=== PATIENT | male | born 1940 ===

== ENCOUNTER → 2016-11-16 15:49 | Outpatient (CLI) | payer MEDICARE, OTHER | END | disposition home or self-care (01) | LOC: D.MRI 15:49 | DX: M54.12 Radiculopathy, cervical region (principal) ==

== ENCOUNTER → 2019-05-29 11:56 | Outpatient (CLI) | payer MEDICARE, BC ==
[~2019-05-29 11:56] MED LIST: AMITIZA24 MCG PO; CENTRUM MEN'S1 EACH PO; COZAAR100 MG PO; ELIQUIS2.5 MG PO; HYDROCODON-ACE1 EA10 PO; KLOR-CON 1010 MEQ PO; MOBIC7.5 MG PO; MUCINEX600 MG PO; OSTEO BI-FLEX1 EAC1 PO; PRAVACHOL40 MG PO; PRESERVISION PO; PROSCAR PO; RANITIDINE HCL150 M1 PO; ROCEPHIN 1 GM/D51 G1 IV; ZIAC 10-6.25 MG1 TAB PO; ZYRTEC10 MG PO
[2019-07-11 10:30] VITALS: BMI 29.5
== END | disposition home or self-care (01) ==
LOC: D.LABREF 11:56
PROVIDERS: ATTEND Orthopaedic Surgery
DX: M17.11 Unilateral primary osteoarthritis, right knee (principal)

== ENCOUNTER 2019-06-01 16:55 | Inpatient (IN) | payer MEDICARE, BC ==
[~2019-06-01] VITALS: Ht 175.3 cm; Wt 92.7 kg
[2019-06-16] MEDS ORDERED: MOBIC7.5 MG PO (13:31)
[2019-06-16] MEDS ORDERED: RANITIDINE HCL150 M1 PO (13:32)
[2019-06-16] MEDS ORDERED: ZIAC 10-6.25 MG1 TAB PO (13:33)
[2019-06-16] MEDS ORDERED: PRESERVISION PO (13:33)
[2019-06-16] MEDS ORDERED: OSTEO BI-FLEX1 EAC1 PO (13:33)
[2019-06-16] MEDS ORDERED: ZYRTEC10 MG PO (13:34)
[2019-06-16] MEDS ORDERED: COZAAR100 MG PO (13:34)
[2019-06-16] MEDS ORDERED: KLOR-CON 1010 MEQ PO (13:35)
[2019-06-16] MEDS ORDERED: PRAVACHOL40 MG PO (13:35)
[2019-06-16] MEDS ORDERED: CENTRUM MEN'S1 EACH PO (13:36)
[2019-06-17 11:57] LABS: BASOPHILS 0.3 % (0-2); EOSINOPHILS 3.5 % (0-7); HEMATOCRIT 41.8 % (42.0-54.0); HEMOGLOBIN 14.7 g/dL (13.5-17.5); IMMATURE GRANULOCYTES 0.3 % (0-5); LYMPHOCYTES 21.6 % (15-50); MCH 29.6 pg (26.0-34.0); MCHC 35.2 g/dL (31.0-37.0); MCV 84.1 fL (80.0-100.0); MEAN PLATELET VOLUME 11.5 fL (7.4-10.4); MONOCYTES 9.4 % (2-11); NEUTROPHILS 64.9 % (40-80); PLATELET COUNT 138 10x3/uL (130-400); RBC 4.97 10x6/uL (4.20-6.10); RDW 13.6 % (11.5-14.5); WBC 6.9 10x3/uL (4.8-10.8)
[2019-06-17 12:03] LABS: APTT 31.6 SECONDS (22.8-39.4); INR 1.09 (0.85-1.17); PROTIME 13.6 SECONDS (11.6-15.0)
[2019-06-17 12:15] LABS: CALC OSMOLALITY 290 mosm/kg (275-300); CARBON DIOXIDE 30.2 mmol/L (21.0-32.0); CHLORIDE - SERUM 107 mmol/L (98-107); GLUCOSE 96 mg/dL (74-106); POTASSIUM - SERUM 3.8 mmol/L (3.5-5.1); SODIUM 145 mmol/L (136-145); UREA NITROGEN 19 mg/dL (7-18); eGFR NON AFRICAN AMERICAN 76 mL/min (90-120)
[2019-06-17 12:59] LABS: APPEARANCE CLEAR (CLEAR); BACTERIA FEW /hpf (NONE SEEN); BILIRUBIN NEGATIVE (NEGATIVE); COLOR DK YELLOW (YELLOW); EPITHELIAL CELLS 0-5 /hpf (0-5); GLUCOSE NEGATIVE (NEGATIVE); KETONE NEGATIVE (NEGATIVE); MUCUS <1+ /lpf (NONE SEEN); NITRITE NEGATIVE (NEGATIVE); PROTEIN 1+ mg/dL (NEGATIVE); RED CELLS - URINE NONE SEEN /hpf (0-5); SPECIFIC GRAVITY 1.025 (1.005-1.020); UROBILINOGEN NORMAL (NORMAL); WHITE CELLS - URINE RARE /hpf (0-5)
[2019-06-17 13:00] LABS: CALCIUM OXALATE CRYSTALS 0-5 /hpf (NONE SEEN)
[2019-07-06 09:39] LABS: APPEARANCE CLEAR (CLEAR); BILIRUBIN NEGATIVE (NEGATIVE); COLOR DK YELLOW (YELLOW); GLUCOSE NEGATIVE (NEGATIVE); KETONE NEGATIVE (NEGATIVE); NITRITE NEGATIVE (NEGATIVE); PROTEIN NEGATIVE (NEGATIVE); SPECIFIC GRAVITY 1.025 (1.005-1.020)
[2019-07-06 09:42] LABS: APTT 32.2 SECONDS (22.8-39.4); INR 1.09 (0.85-1.17); PROTIME 13.6 SECONDS (11.6-15.0)
[2019-07-06 09:43] LABS: CALC OSMOLALITY 295 mosm/kg (275-300); CARBON DIOXIDE 31.9 mmol/L (21.0-32.0); CHLORIDE - SERUM 108 mmol/L (98-107); GLUCOSE 97 mg/dL (74-106); POTASSIUM - SERUM 4.1 mmol/L (3.5-5.1); SODIUM 147 mmol/L (136-145); UREA NITROGEN 23 mg/dL (7-18); eGFR NON AFRICAN AMERICAN 76 mL/min (90-120)
[2019-07-06 09:56] VITALS: BP 130/83; BMI 30.3
[2019-07-06 10:50] LABS: BASOPHILS 0.3 % (0-2); EOSINOPHILS 4.7 % (0-7); HEMATOCRIT 43.8 % (42.0-54.0); HEMOGLOBIN 14.9 g/dL (13.5-17.5); IMMATURE GRANULOCYTES 0.2 % (0-5); LYMPHOCYTES 27.4 % (15-50); MCH 29.7 pg (26.0-34.0); MCV 87.3 fL (80.0-100.0); MEAN PLATELET VOLUME 12.1 fL (7.4-10.4); MONOCYTES 10.4 % (2-11); RBC 5.02 10x6/uL (4.20-6.10); RDW 13.8 % (11.5-14.5); WBC 6.1 10x3/uL (4.8-10.8)
[2019-07-06 10:51] LABS: PLATELET COUNT 174 10x3/uL (130-400)
--- NOTE | 2019-07-06 15:12 | NUR ---
PLAZMA BLADE ELACTRODE PAD USED LOT # [id number] DATE 10/22/20 HIBCLENS WITH ALCHOL USED BEFORE CHLORO PREP FROM TOES TO ABOBE KNEE. CHLORO PREP FROM TOES TO ABOVE KNEE
[2019-07-06 17:13] VITALS: BP 142/93
[2019-07-06 17:27] VITALS: BP 146/79; BMI 30.2
[2019-07-06 20:00] VITALS: BP 123/64
--- NOTE | 2019-07-06 20:25 | NUR ---
LYING IN BED. ALERT AND ORIENTED X4. AT BEDSIDE. RESP EVEN AND NONLABORED. DENIES PAIN. JACLYN NOTED TO RT KNEE. CPM IN USE AT THIS TIME. KANA NOTED TO BLE. PEDAL PULSES GOOD. NO EDEMA. 1/2 NS @ 100 ML/HR INFUSING IN LT FOREARM. NO DISTRESS. SR ELEVATED X2. CL IN REACH.
[2019-07-07] VITALS: BP 108/61
[2019-07-07 04:00] VITALS: BP 102/51
--- NOTE | 2019-07-07 06:34 | NUR ---
PT PLACED ON CPM. DENIES PAIN. AT BEDSIDE. CL IN REACH.
[2019-07-07 07:18] LABS: HEMATOCRIT 37.8 % (42.0-54.0); HEMOGLOBIN 12.7 g/dL (13.5-17.5); MCH 29.3 pg (26.0-34.0); MCHC 33.6 g/dL (31.0-37.0); MCV 87.1 fL (80.0-100.0); MEAN PLATELET VOLUME 11.4 fL (7.4-10.4); RBC 4.34 10x6/uL (4.20-6.10); RDW 13.8 % (11.5-14.5)
[2019-07-07 07:30] LABS: WBC 13.9 10x3/uL (4.8-10.8)
--- NOTE | 2019-07-07 08:00 | NUR ---
PT RESTING IN BED WITH CPM IN PLACE TO RIGHT LOWER EXTREMITY. DRESSING C/D/I TO EXTREMITY. DENIES PAIN AT THIS TIME. IV TO LEFT FOREARM WITH 1/2 NS @ 100ML/HR INFUSING VIA PUMP. SITE WITHOUT REDNESS OR EDEMA. AT BEDSIDE. DENIES FURTHER NEEDS AT THIS TIME. CL WITHIN REACH. ENCOURAGED TO CALL WITH NEEDS. CONTINUE POC
[2019-07-07 08:15] VITALS: BP 108/52
--- NOTE | 2019-07-07 08:29 | NUR ---
Post op day [address] Cisneros. Along with MD orders, wound care recommends: -Turn/reposition/assist q 2 hours while in bed - reposition hourly if up in chair -Mepilex to bilateral heels (floating L heel) -Assess skin q shift and as needed if pt complains of tenderness/soreness/burning. -If redness/irritation to perineal area occur use calmoseptine cream
[2019-07-07 09:57] LABS: ALBUMIN 3.3 g/dL (3.4-5.0); ANION GAP 15.4 mmol/L (8-16); BILIRUBIN - TOTAL 1.07 mg/dL (0.2-1.3); CALCIUM 8.1 mg/dL (8.5-10.1); CARBON DIOXIDE 26.5 mmol/L (21.0-32.0); POTASSIUM - SERUM 3.9 mmol/L (3.5-5.1); PROTEIN - SERUM 5.8 g/dL (6.4-8.2)
[2019-07-07 09:58] LABS: CREATININE - SERUM 1.3 mg/dL (0.6-1.3)
[2019-07-07 12:39] VITALS: BP 119/61
[2019-07-07 16:02] VITALS: BP 142/82
--- NOTE | 2019-07-07 19:50 | NUR ---
PT COMBATIVE WITH FAMILY AND TRYING TO GET OOB. CONFUSED. ORIENTED TO SELF ONLY. DIAPHORETIC. VISUAL HALLUCINATIONS NOTED. UNABLE TO USE CPM DUE TO PULLED LEG UP AND TRYING TO GET OOB. BED ALARM IN USE. OFFGOING STAFF REPORTED THAT MD HAD BEEN PAGED TWICE AND CALL HAD NOT BEEN RETURNED.
--- NOTE | 2019-07-07 21:20 | NUR ---
NOTIFIED THIAGO GARCIA OF PT AGITATION. PT CONFUSED, PULLED OFF GOWN, TRYING TO GET OOB, COMBATIVE WITH FAMILY AND PULLING ON LINES. B/P ELEVATED. NEW ORDER NOTED FOR HALDOL 0.5MG IM. BED ALARM IN USE. FAMILY AT BEDSIDE. CONTINUOUS SAO2 PLACED ON PT. SAO2 88%. O2 @ 3L/NC PLACED ON PT. SAO2 97% NOW.
[2019-07-07 22:56] VITALS: BP 172/88
[2019-07-08 01:40] VITALS: BP 175/95
--- NOTE | 2019-07-08 02:25 | NUR ---
MEDICATED WITH TYLENOL SUPP FOR ELEVATED TEMP SINCE PT IS NOT COOPERATIVE AND HAS DIFF FOLLOWING COMMANDS. HAS BEEN AWAKE ALL NIGHT AND RESTLESS. SAO2 97%. O2 @ 2L/NC. STAFF HAS BEEN IN ROOM EVERY FEW MINUTES ALL NIGHT LONG DUE TO PT URINATING ON SELF, TRYING TO GET OOB OR NEEDING TO BE PULLED UP IN THE BED. PT WILL NOT LEAVE GOWN ON. IV FLUIDS TURNED OFF BECAUSE IV KEPT ALARMING DUE TO PT NOT KEEPING ARM STILL. BED ALARM IN USE. FAMILY MEMBERS AT BEDISE.
--- NOTE | 2019-07-08 03:32 | NUR ---
PT STILL RESTLESS AND TRYING TO GET OOB. UNABLE TO REDIRECT BEHAVIOR. ORIENTED TO SELF ONLY. BED ALARM IN USE. FAMILY AT BEDSIDE. O2 @ 3L/NC. SAO2 97%. CL IN REACH.
[2019-07-08 04:58] VITALS: BP 180/84
--- NOTE | 2019-07-08 05:45 | NUR ---
HAS BEEN NAPPING OFF AND ON FOR PAST HOUR. EASILY AWAKENS. SAO2 95%. O2 @ 3L/NC. FAMILY AT BEDSIDE. CL IN REACH. BED ALARM ON
[2019-07-08 06:43] LABS: ALBUMIN 3.4 g/dL (3.4-5.0); ANION GAP 11.4 mmol/L (8-16); BILIRUBIN - TOTAL 1.68 mg/dL (0.2-1.3); CALCIUM 8.4 mg/dL (8.5-10.1); CREATININE - SERUM 1.1 mg/dL (0.6-1.3); POTASSIUM - SERUM 3.4 mmol/L (3.5-5.1); PROTEIN - SERUM 6.5 g/dL (6.4-8.2)
[2019-07-08 06:59] LABS: BASOPHILS 0.1 % (0-2); EOSINOPHILS 0 % (0-7); HEMATOCRIT 36.9 % (42.0-54.0); HEMOGLOBIN 12.4 g/dL (13.5-17.5); IMMATURE GRANULOCYTES 0.4 % (0-5); LYMPHOCYTES 6.7 % (15-50); MCHC 33.6 g/dL (31.0-37.0); MCV 86.4 fL (80.0-100.0); MONOCYTES 13.9 % (2-11); NEUTROPHILS 78.9 % (40-80); PLATELET COUNT 147 10x3/uL (130-400); RBC 4.27 10x6/uL (4.20-6.10); WBC 16.2 10x3/uL (4.8-10.8)
--- NOTE | 2019-07-08 07:55 | NUR ---
PT RESTING IN BED. AT BEDSIDE. NO S/S OF ACUTE DISTRESS. CL IN PLACE.
[2019-07-08 08:45] VITALS: BP 162/90
--- NOTE | 2019-07-08 09:08 | OP ---
PATIENT NAME: Ishmael QUINONEZ MEDICAL RECORD: [id number] :36 LOCATION:D[id number] ADMISSION DATE:07/06/19 SURGEON: KYE BURGESS MD DATE OF OPERATION: 07/06/2019 PREOPERATIVE DIAGNOSIS: Degenerative arthritis, right knee. POSTOPERATIVE DIAGNOSIS: Degenerative arthritis, right knee. PROCEDURE: Right total knee arthroplasty. SURGEON: Kye Burgess MD ANESTHESIA: General. INTRAOPERATIVE COMPLICATIONS: None. SUMMARY OF PATHOLOGIC FINDINGS: The patient had extreme osteoarthritis of the medial compartment with large osteophytes. IMPLANTS USED: Elmore triathlon total knee arthroplasty, cemented size 7 distal femur, size 7 tibial baseplate, size 11 polyethylene insert, size 36 x 10 mm patella, again, all in cemented. MECHANICAL HANDYMAN: BASIA Constantino ESTIMATED BLOOD LOSS: 100 cc. OPERATIVE SUMMARY IN DETAIL: After obtaining the appropriate preoperative orthopedic surgery consent as well as anesthetic consultation, evaluation, and clearance, the patient was brought to the operating room and placed on the operating table in supine position. After general laryngeal mask airway was administered, tourniquet was placed on the proximal aspect of the lower extremity. Right lower extremity was then prepped and draped in routine sterile fashion. The leg was elevated and exsanguinated, tourniquet was inflated to 350 mmHg. Routine midline incision was taken down for paramedian arthrotomy. Patella was everted, distal femoral and proximal tibial joint were exposed. Soft tissues excision was done in the usual fashion. An intramedullary guide hole was created for intramedullary guided distal femoral cut. This was then followed by complete exposure of the proximal tibia. Further soft tissue excision was done followed by placement of intramedullary guide hole for intramedullary guide to cut. The proximal tibia measurements were taken. Chamfer cuts were made on the distal femur. Trials corresponding to the final components were put into place, taken through range of motion and found to be stable in all planes. Final distal femoral and proximal tibial preparations were then followed by excision of the arthritic aspect of the patella. The patella was then prepared for final cementation of the 36 patellar resurfacing implant. All trials were removed. The knee was then irrigated with pulse lavage to remove any debris from the knee cavity. Knee ends were then exposed and dried with a lap sponge and the final components were cemented into place. All excess cement was removed. Having completed drying, the knee was taken through range of motion and found to be stable in all planes. The knee was then treated with a gram of vancomycin and a gram of tobramycin inside the cavity of the knee, it was then closed with #2 Ethibond by BASIA Constantino, as well as #1 Vicryl, 2-0 Vicryl and skin cindy. Sterile dressings were applied. OPERATIVE REPORT [id number] Ishmael QUINONEZ Tourniquet was deflated. The patient was awakened and taken to recovery room in stable condition. All final needle and sponge counts were correct. TRANSINT:[id number] Voice Confirmation ID: [id number] DOCUMENT ID: [id number] JENIFER WONG, KYE KING at 0908 CC: [id number] DICTATION DATE: 07/06/[address] OFFICER: 07/07/19 0253 ADM IN [facility] [address] [place] [address]
--- NOTE | 2019-07-08 10:20 | NUR ---
CALLED [place] FRANKLIN ABOUT PT REQUEST FOR SLEEP MEDICATION. TO FOR TRAZODONE 50 MG QHSPRN.
--- NOTE | 2019-07-08 10:30 | NUR ---
SCANNED BLADDER 879ML NOTED. FC PLACED. 900ML OF CLEAR YELLOW URINE NOTED TO CATH BAG. NO S/S OF ACUTE DISTRESS. CL IN PLACE.
[2019-07-08 12:51] VITALS: BP 140/98
--- NOTE | 2019-07-08 16:23 | NUR ---
Rehab Note- Acute Inpatient Rehab prescreen order received. The patient has a TKA but has had some post op complications. Will continue to follow at this time. THank you for this referral! Angela Reyes RN Clinical Liaison, [facility] Rehab
--- NOTE | 2019-07-08 16:30 | MORECARE ---
CASE MANAGEMENT DISCHARGE SUMMARY PATIENT: Ishmael QUINONEZ UNIT: [id number] ADM DATE: 07/06/19 AGE: 78 : 38 SEX: M ROOM/BED: D.2211 AUTHOR: DARRIAN BOYD PHYSICIAN: REFERRING PHYSICIAN: KYE BURGESS MD DATE OF SERVICE: 07/08/19 Discharge Plan Patient Name: Ishmael QUINONEZ Facility: [facility]:[place] : 1940 Planned Disposition: Anticipated Discharge Date: Discharge Date: Expected LOS: Initial Reviewer: [email or web address] Initial Review Date: 07/08/2019 Generated: 07/08/19 5:29 pm Comments DCP- Discharge Planning Updated by [email or web address]: Criselda Husain on 07/08/19 3:[address] Patient Name: Ishmael QUINONEZ Admission Status: Urgent Accout number: [id number] Admission Date: 07-06-2019 : 1940 Admission Diagnosis:UNILATERAL PRIMARY OSTEOARTHRITIS, RIGHT KNEE Attending: KYE BURGESS Current LOS: 2 Anticipated DC Date: Planned Disposition: Primary Insurance: MEDICARE A & B Discharge Planning Comments: CM SPOKE WITH CHRISTIE AMOS AND PLANS FOR [facility]. SYMONE WITH PT SPOKE WITH ME TODAY AND STATES PATIENT WAS VERY NAUSEATED AND TACHY WHEN SHE WAS DOING PT WITH HIM. CM WILL FOLLOW AND ASSIST. Microbiology Teacher: Criselda Husain Patient Name: Ishmael QUINONEZ Page [phone] at 1630 All edits/amendments must be made on the electronic document DICTATION DATE: 07/08/191628 TOOTH GRINDER: ALMAZ 07/08/19 162 RPT#: [id number] DC DATE: STATUS: ADM IN [facility] [address] [place] [address] END OF REPORT
[2019-07-08 17:26] VITALS: BP 127/84
--- NOTE | 2019-07-08 17:45 | NUR ---
OT NOTE: PT COMPLETED BED MOB WITH MAX A. PT COMPLETED SIT TO STAND WITH MOD A. PT COMPLETED BUE AROM AXS. PT COMPLETED FACE WASH WITH SETUP. THANK YOU, NIA SAINI
--- NOTE | 2019-07-08 18:35 | NUR ---
DAUGHTER STATED, " PT IS SWEATING" CHECKED TEMP AND TEMPORAL 98.7. NO S/S OF ACUTE DISTRESS. DAUGHTER AT BEDSIDE. CL IN PLACE.
[2019-07-08 21:22] VITALS: BP 149/87
[2019-07-09 01:14] VITALS: BP 163/89
[2019-07-09 04:57] VITALS: BP 158/88
[2019-07-09 06:28] LABS: BASOPHILS 0.1 % (0-2); EOSINOPHILS 1.2 % (0-7); HEMOGLOBIN 11.3 g/dL (13.5-17.5); IMMATURE GRANULOCYTES 0.5 % (0-5); LYMPHOCYTES 7.6 % (15-50); MCH 29.2 pg (26.0-34.0); MCHC 33.2 g/dL (31.0-37.0); MCV 87.9 fL (80.0-100.0); MEAN PLATELET VOLUME 11.1 fL (7.4-10.4); MONOCYTES 11.9 % (2-11); NEUTROPHILS 78.7 % (40-80); PLATELET COUNT 137 10x3/uL (130-400); RBC 3.87 10x6/uL (4.20-6.10); RDW 14.1 % (11.5-14.5); WBC 15.4 10x3/uL (4.8-10.8)
[2019-07-09 06:59] LABS: ALBUMIN 2.9 g/dL (3.4-5.0); ALKALINE PHOSPHATASE 66 U/L (46-116); ALT (SGPT) 20 U/L (10-68); BILIRUBIN - TOTAL 1.88 mg/dL (0.2-1.3); CALC OSMOLALITY 282 mosm/kg (275-300); CALCIUM 8.4 mg/dL (8.5-10.1); CARBON DIOXIDE 30.2 mmol/L (21.0-32.0); CHLORIDE - SERUM 103 mmol/L (98-107); GLUCOSE 110 mg/dL (74-106); PROTEIN - SERUM 5.6 g/dL (6.4-8.2); SODIUM 141 mmol/L (136-145); UREA NITROGEN 15 mg/dL (7-18)
[2019-07-09 07:00] LABS: CREATININE - SERUM 0.8 mg/dL (0.6-1.3); eGFR NON AFRICAN AMERICAN > 90 mL/min (90-120)
--- NOTE | 2019-07-09 07:30 | NUR ---
PATIENT ON CPM. IN ROOM. CO OF PAIN 4 OUT OF 10. CL IN REACH. BED ALARM ON. WILL CONTINUE TO MONITOR.
[2019-07-09 08:59] VITALS: BP 154/85
--- NOTE | 2019-07-09 09:30 | NUR ---
PATIENT REMOVED FROM CPM MACHINE. IV THERAPY RESTARTED BECAUSE IT WAS ALARMING OCCLUDED PATIENT SIDE. HE HAD HIS ARM UP AND BENT. CL IN REACH. FAMILY IN ROOM. NO FURTHER NEEDS AT THIS TIME.
[2019-07-09 12:38] VITALS: BP 155/76
--- NOTE | 2019-07-09 12:45 | NUR ---
OT NOTE: PT REMAINS CONFUSED WITH IMPAIRED PROCESSING AND COORDINATION.. PT WAS ON THE BED TEMPLE BUT REPORTED THAT HE HAD BEEN OFF AND ON BP WITH NO SUCCESS. FOUND BS COMMODE; BED MOB WITH MOD ASSIST AND DECREASED MOTOR PLANNING. SITTING BALANCE ON EOB WAS GOOD-; TRANSFER FROM BED TO CHAIR WITH WALKER AND MIN ASSIST, BUT REQUIRES EXTENSIVE VERBAL AND TACTILE CUES FOR HAND/FOOT PLACEMENT, WALKER MGMT, AND CONTINUAL TASK INSTRUCTIONS. ALLOWED PT TIME TO SIT ON BS COMMODE, HOWEVER, CALLED FOR HELP PT WAS LEANING BACK AND HOLDING WALKER ON TOP OF HIM AND WAS UNABLE TO RELEASE WALKER. SHE STATED THAT HE WAS TRYING TO STAND UP AND BUT COULD NOT AND CONTINUED TO SLIDE FORWARD ON BS COMMODE. ASSISTED PT BACK TO BED VS CHAIR, HE WILL PROBABLY NEED TO USE BED TEMPLE AGAIN..REQUIRES 2 PERSON ASSIST ONLY BECAUSE OF COGNITIVE ISSUES. STRENGTH IS FAIRLY GOOD AND IS NOT REPORTING PAIN DURING THERAPY. WILL ATTEMPT GETTING INTO CHAIR TOMORROW. DID NOT FEEL SAFE LEAVING PT IN CHAIR WITH HE IS IMPULSIVE AND UNAWARE OF HIS DEFECITS. HIGH FALL RISK AT THIS TIME. ANDRÉS DELGADO, OTR/L
--- NOTE | 2019-07-09 12:53 | NUR ---
ADDENDUM: UPON GETTING PT TRANSFERRED BACK TO BED, HE VOMITTED LARGE AMOUNTS OF BROWN LIQUID. CLEANED PT AND ASSISTED WITH DONNING NEW GOWN. REPOSITIONED IN BED. NURSING NOTIFIED. ANDRÉS DELGADO OTR/L
[2019-07-09 15:50] LABS: APPEARANCE CLEAR (CLEAR); BILIRUBIN NEGATIVE (NEGATIVE); COLOR YELLOW (YELLOW); GLUCOSE NEGATIVE (NEGATIVE); KETONE NEGATIVE (NEGATIVE); NITRITE NEGATIVE (NEGATIVE); PROTEIN 1+ mg/dL (NEGATIVE); SPECIFIC GRAVITY 1.015 (1.005-1.020); UROBILINOGEN NORMAL (NORMAL)
[2019-07-09 15:52] LABS: BACTERIA FEW /hpf (NEGATIVE); WHITE CELLS - URINE 0-5 /hpf (NEGATIVE)
--- NOTE | 2019-07-09 15:59 | NUR ---
Rehab Note- COntinue to follow at this time as the patient has a pending Urology consult d/t urinary retention. THank you for this referral! Angela Reyes RN Clinical Liaison, [facility] Rehab
[2019-07-09 16:38] VITALS: BP 154/73
[2019-07-09 17:28] VITALS: Ht 175.3 cm; Wt 92.7 kg
[2019-07-09 20:00] VITALS: BP 133/65
--- NOTE | 2019-07-09 22:30 | NUR ---
AT BEDSIDE, PT ALERT, BUT FROGETFULLNESS AND SOME DISORIENTATION NOTED. DRESSING TO RIGHT LEG C/D/I. KANA HOSE IN USE. ABDOMINAL DISTENTION NOTED, BUT PT IS PASSING GAS. REPORTS PT HAS BEED HAVING WATERY STOOLS THROUGHOUT THE DAY. PT BEGAN EXPELLING EMESIS CONSISTING OF FOOD PARTICLES. PRN NAUSEA MEDICATION GIVEN PER ORDER.
[2019-07-10] VITALS: BP 140/74
[2019-07-10 04:00] VITALS: BP 127/65
--- NOTE | 2019-07-10 04:13 | NUR ---
I have reviewed this patient and I concur with the Shift Assessment completed by the Licensed Practical Nurse today this shift.
[2019-07-10 06:03] LABS: BASOPHILS 0.1 % (0-2); EOSINOPHILS 0.3 % (0-7); HEMOGLOBIN 11.2 g/dL (13.5-17.5); IMMATURE GRANULOCYTES 0.3 % (0-5); MCH 29.6 pg (26.0-34.0); MCHC 33.9 g/dL (31.0-37.0); MCV 87.1 fL (80.0-100.0); MEAN PLATELET VOLUME 11.4 fL (7.4-10.4); MONOCYTES 10.6 % (2-11); NEUTROPHILS 83.7 % (40-80); RBC 3.79 10x6/uL (4.20-6.10); RDW 13.8 % (11.5-14.5); WBC 14.9 10x3/uL (4.8-10.8)
[2019-07-10 06:05] LABS: PLATELET COUNT 183 10x3/uL (130-400)
[2019-07-10 06:29] LABS: ALBUMIN 2.7 g/dL (3.4-5.0); ANION GAP 11.4 mmol/L (8-16); BILIRUBIN - TOTAL 2.29 mg/dL (0.2-1.3); CALCIUM 8.6 mg/dL (8.5-10.1); CARBON DIOXIDE 29.6 mmol/L (21.0-32.0); PROTEIN - SERUM 6.4 g/dL (6.4-8.2)
[2019-07-10 06:35] LABS: CREATININE - SERUM 1.1 mg/dL (0.6-1.3)
--- NOTE | 2019-07-10 07:28 | NUR ---
PT IS WITHOUT DISTRESS.FAMILY AT BEDSIDE.CALL LIGHT IN REACH
[2019-07-10 08:26] VITALS: BP 115/66
[2019-07-10] MEDS ORDERED: HYDROCODON-ACE1 EA10 PO (12:49)
[2019-07-10] MEDS ORDERED: ELIQUIS2.5 MG PO (12:49)
[2019-07-10] MEDS ORDERED: ROCEPHIN 1 GM/D51 G1 IV (12:49)
[2019-07-10] MEDS ORDERED: MUCINEX600 MG PO (12:50)
[2019-07-10] MEDS ORDERED: PROSCAR PO (12:50)
[2019-07-10] MEDS ORDERED: AMITIZA24 MCG PO (12:50)
[2019-07-10 13:19] VITALS: BP 115/58
--- NOTE | 2019-07-10 14:07 | MORECARE ---
CASE MANAGEMENT DISCHARGE SUMMARY PATIENT: Ishmael QUINONEZ UNIT: [id number] ADM DATE: 07/06/19 AGE: 78 : 38 SEX: M ROOM/BED: D.2211 AUTHOR: DARRIAN BOYD PHYSICIAN: REFERRING PHYSICIAN: KYE BURGESS MD DATE OF SERVICE: 07/10/19 Discharge Plan Patient Name: Ishmael QUINONEZ Facility: [facility]:[place] : 1940 Planned Disposition: Inpatient Rehab Anticipated Discharge Date: Discharge Date: Expected LOS: Initial Reviewer: [email or web address] Initial Review Date: 07/08/2019 Generated: 07/10/19 3:07 pm Comments DCP- Discharge Planning Updated by [email or web address]: Imani Bang on 07/10/19 1:[address] PATIENT TO BE DISCHARGED TO INPATIENT REHAB AT [facility] TODAY, IMM SERVED AND EXPLAINED. FAMILY AT BEDSIDE. CM TO FOLLOW AND ASSIST NEEDED DCP- Discharge Planning Updated by [email or web address]: Criselda Husain on 07/08/19 3:[address] Patient Name: Ishmael QUINONEZ Admission Status: Urgent Accout number: [id number] Admission Date: 07-06-2019 : 1940 Admission Diagnosis:UNILATERAL PRIMARY OSTEOARTHRITIS, RIGHT KNEE Attending: KYE BURGESS Current LOS: 2 Anticipated DC Date: Planned Disposition: Primary Insurance: MEDICARE A & B Discharge Planning Comments: CM SPOKE WITH CHRISTIE AMOS AND PLANS FOR [facility]. SYMONE WITH PT SPOKE WITH ME TODAY AND STATES PATIENT WAS VERY NAUSEATED AND TACHY WHEN SHE WAS DOING PT WITH HIM. CM WILL FOLLOW AND ASSIST. Landscape Manager: Criselda Husain Coverage Notice Reviewer: [id number] - Imani Bang Notice Issued Date-Time: 07/10/2019 13:55 Notice Type: IM Discharge Notice Notice Delivered To: Patient Relationship to Patient: Automatic Dry Starch Operator Name: Delivery Method: HAND - Hand Delivered Caron Days: Prior Verbal Notification: Recipient Understood Notice: Yes Recipient Signature: Yes Med Rec Note Co-signed by Attending: Coverage Notice Comment: Last DP export: 07/08/19 3:30 p Patient Name: Ishmael QUINONEZ Page [id number] at 1407 All edits/amendments must be made on the electronic document DICTATION DATE: 07/10/191406 DRILL SHARPENER: ALMAZ 07/10/191406 RPT#: [id number] DC DATE: STATUS: ADM IN [facility] [address] [place] [address] END OF REPORT
--- NOTE | 2019-07-13 10:17 | MORECARE ---
CASE MANAGEMENT DISCHARGE SUMMARY PATIENT: Ishmael QUINONEZ UNIT: [id number] ADM DATE: 07/06/19 AGE: 78 : 38 SEX: M ROOM/BED: D.2211 AUTHOR: DARRIAN BOYD PHYSICIAN: REFERRING PHYSICIAN: KYE BURGESS MD DATE OF SERVICE: 07/13/19 Discharge Plan Patient Name: Ishmael QUINONEZ Facility: [facility]:[place] : 1940 Planned Disposition: Inpatient Rehab Anticipated Discharge Date: Discharge Date: 07/10/2019 Expected LOS: 0 Initial Reviewer: [id number] Initial Review Date: 07/08/2019 Generated: 07/13/19 11:17 am DCP- Discharge Planning Updated by [email or web address]: Imani Bang on 07/10/19 1:[address] PATIENT TO BE DISCHARGED TO INPATIENT REHAB AT [facility] TODAY, IMM SERVED AND EXPLAINED. FAMILY AT BEDSIDE. CM TO FOLLOW AND ASSIST NEEDED DCP- Discharge Planning Updated by [email or web address]: Criselda Husain on 07/08/19 3:[address] Patient Name: Ishmael QUINONEZ Admission Status: Urgent Accout number: [id number] Admission Date: 07-06-2019 : 1940 Admission Diagnosis:UNILATERAL PRIMARY OSTEOARTHRITIS, RIGHT KNEE Attending: KYE BURGESS Current LOS: 2 Anticipated DC Date: Planned Disposition: Primary Insurance: MEDICARE A & B Discharge Planning Comments: CM SPOKE WITH CHRISTIE AMOS AND PLANS FOR CRITICAL ACCESS HOSPITAL. SYMONE WITH PT SPOKE WITH ME TODAY AND STATES PATIENT WAS VERY NAUSEATED AND TACHY WHEN SHE WAS DOING PT WITH HIM. CM WILL FOLLOW AND ASSIST. Sheet Metal Supervisor: Criselda Husain Coverage Notice Reviewer: [id number] - Imani Bang Notice Issued Date-Time: 07/10/2019 13:55 Notice Type: IM Discharge Notice Notice Delivered To: Patient Relationship to Patient: Uniform Attendant Name: Delivery Method: HAND - Hand Delivered Caron Days: Prior Verbal Notification: Recipient Understood Notice: Yes Recipient Signature: Yes Med Rec Note Co-signed by Attending: Coverage Notice Comment: Last DP export: 07/10/19 1:07 p Patient Name: Ishmael QUINONEZ Page [id number] at 1017 All edits/amendments must be made on the electronic document DICTATION DATE: 07/13/19 1017 FIRST BREAKER FEEDER: ALMAZ 07/13/19 1017 RPT#: [id number] DC DATE:07/10/19 STATUS: DIS IN [facility] [address] [place] [address] END OF REPORT
== END 2019-07-10 15:06 | DRG 470 ==
LOC: D.SDCHOLD 06-22 10:00 → D.MS 07-06 09:01 → D.SDCHOLD 07-06 10:00 → D.MS 07-06 17:12
PROVIDERS: Family Medicine; ADMIT Orthopaedic Surgery; ATTEND Orthopaedic Surgery
PROC: 0SRC0J9 Replacement of Right Knee Joint with Synthetic Substitute, Cemented, Open Approach (ICD-10-PCS; principal; 2019-07-06 11:15)
DX: M17.11 Unilateral primary osteoarthritis, right knee (principal); D62 Acute posthemorrhagic anemia; I10 Essential (primary) hypertension; E78.5 Hyperlipidemia, unspecified; K21.9 Gastro-esophageal reflux disease without esophagitis; R47.02 Dysphasia; I49.9 Cardiac arrhythmia, unspecified; M54.9 Dorsalgia, unspecified; N40.1 Benign prostatic hyperplasia with lower urinary tract symptoms; R33.8 Other retention of urine

== ENCOUNTER 2019-07-10 15:37 | Inpatient (IN) | payer MEDICARE, BC ==
[~2019-07-10] VITALS: Ht 175.3 cm; Wt 90.7 kg
--- NOTE | 2019-07-10 17:00 | NUR ---
ADMIT TO FLOOR FROM ACUTE CARE. RT KNEE HAS 7 DAY DRESSING. PEDAL PULSES PRESENT X2. THERAPY PUT PT ON CPM TO RLE. NO IV ACCESS NOTED. DTR IN ROOM WITH PT. CALL LIGHT IN REACH
[2019-07-10 17:02] VITALS: BP 120/80; BMI 29.6
--- NOTE | 2019-07-10 19:22 | NUR ---
STARTED IV LEFT UPPER ARM 22G X1 ATTEMPT. FLUSHES AND DRAWS WITHOUT DIFFICULTY. DRESSING C/D/I DATE, TIME, AND INITIAL. PT TOLERATED WELL.
--- NOTE | 2019-07-10 20:00 | NUR ---
PATIENT RECEIVED SITTING UP IN CHAIR. DAUGHTER AT HIS SIDE. ASSESSMENT & VITAL SIGNS DONE. NO C/O PAIN OR DISTRESS. WILL CONTINUE TO MONITOR.
--- NOTE | 2019-07-10 20:55 | NUR ---
PATIENT ROCEPHIN GIVEN AT THIS TIME D/T HIS ADMISSION THIS AFTERNOON.
[2019-07-10 22:00] VITALS: BP 132/73
--- NOTE | 2019-07-11 02:56 | NUR ---
I have reviewed this patient and I concur with the Shift Assessment completed by the Licensed Practical Nurse today this shift.
--- NOTE | 2019-07-11 03:38 | NUR ---
PATIENT EYES CLOSED. RESPIRATIONS 18 & EVEN. AT BEDSIDE. BED LOW. ALARM ON. WILL CONTINUE TO MONITOR.
[2019-07-11 05:46] LABS: BASOPHILS 0.1 % (0-2); EOSINOPHILS 3.1 % (0-7); HEMATOCRIT 30.1 % (42.0-54.0); HEMOGLOBIN 10.1 g/dL (13.5-17.5); IMMATURE GRANULOCYTES 0.4 % (0-5); LYMPHOCYTES 10.6 % (15-50); MCH 29.1 pg (26.0-34.0); MCHC 33.6 g/dL (31.0-37.0); MCV 86.7 fL (80.0-100.0); MEAN PLATELET VOLUME 10.7 fL (7.4-10.4); MONOCYTES 12.9 % (2-11); NEUTROPHILS 72.9 % (40-80); PLATELET COUNT 192 10x3/uL (130-400); RBC 3.47 10x6/uL (4.20-6.10); WBC 13.4 10x3/uL (4.8-10.8)
[2019-07-11 06:00] LABS: CALCIUM 8.5 mg/dL (8.5-10.1); CARBON DIOXIDE 28.1 mmol/L (21.0-32.0); CHLORIDE - SERUM 102 mmol/L (98-107); GLUCOSE 104 mg/dL (74-106); SODIUM 140 mmol/L (136-145); eGFR NON AFRICAN AMERICAN 76 mL/min (90-120)
[2019-07-11 06:01] LABS: CALC OSMOLALITY 285 mosm/kg (275-300); POTASSIUM - SERUM 3.3 mmol/L (3.5-5.1); UREA NITROGEN 32 mg/dL (7-18)
[2019-07-11 07:33] VITALS: BP 123/60
[2019-07-11 10:30] VITALS: Ht 175.3 cm; Wt 90.7 kg
--- NOTE | 2019-07-11 10:31 | NUR ---
RESTING WO DISTRESS. AT BS. NO C/O PAIN. CL IN REACH.
--- NOTE | 2019-07-11 13:39 | NUR ---
ASSISTED TO BED FROM . BED ALARM IS ON. CL IN REACH.
--- NOTE | 2019-07-11 15:26 | NUR ---
ACCIDENT ON CLOTHES AND LINENS.
--- NOTE | 2019-07-11 17:16 | NUR ---
DOING THERAPY AT THIS TIME. REFUSED THERAPY TWICE TODAY BUT, IS PARTICIPATING NOW. NO CHANGE IN ASSESSMENT. DAUGHTER IS HERE IN HIS ROOM WAITING FOR HIM TO RETURN FROM THERAPY.
--- NOTE | 2019-07-11 19:30 | NUR ---
BEDSIDE REPORT COMPLETE. PT LYING IN BED EYES CLOSED RESTING QUIETLY. CPM ON RIGHT LEG. EASILY AROUSED WITH VERBAL STIMULI. DENIES ANY NEEDS OR PAIN. FAMILY AT BEDSIDE NOTED. CALL LIGHT WITHIN REACH, FALL PRECAUTIONS IN PLACE. WILL CONTINUE TO MONITOR
[2019-07-11 21:03] VITALS: BP 130/64
--- NOTE | 2019-07-11 23:20 | NUR ---
QUIET HOURS. PT LYING IN BED SUPINE EYES CLOSED RESTING QUIETLY. BELL PATENT FREE OF KINKS. SLEEPING IN CHAIR AT BEDSIDE. WILL CONTINUE TO MONITOR
--- NOTE | 2019-07-12 03:01 | NUR ---
PT LYING IN BED EYES CLOSED RESTING QUIETLY. SLEEPING IN CHAIR AT BEDSIDE.
--- NOTE | 2019-07-12 06:01 | NUR ---
PT SITTING UP IN W/C WATCHING TV WITH . DENIES ANY NEEDS OR PAIN.
--- NOTE | 2019-07-12 09:27 | NUR ---
PATIENT IS CONFUSED AT TIMES. FAMILY REMAINS IN ROOM WITH PATIENT. BED ALARM ON. CALL LIGHT WITHIN REACH. VOICES NO NEEDS AT THIS TIME. WILL CONTINUE WITH PLAN OF CARE
[2019-07-12 10:32] VITALS: BP 144/72
--- NOTE | 2019-07-12 15:45 | NUR ---
PATIENT HELPED OUT OF BED. MOD ASST OF ONE WITH TRANSFERS FROM BED TO WHEELCHAIR
--- NOTE | 2019-07-12 16:45 | NUR ---
IV ANTIBIOTIC STARTED. PATIENT SITTING UP IN WHEELCHAIR TO EAT SUPPER. FAMILY IN ROOM.
--- NOTE | 2019-07-12 18:58 | NUR ---
BEDSIDE REPORT COMPLETE. PT LYING IN BED WATCHING TV. AT BEDSIDE NOTED. DENIES ANY NEEDS OR PAIN. NO SIGNS OF DISTRESS NOTED. BELL PATENT FREE OF KINKS. BART IV SL WITHOUT REDNESS OR SWELLING. DRESSING C/D/I. CALL LIGHT AND WATER WITHIN REACH, FALL PRECAUTIONS IN PLACE. WILL CONTINUE TO MONITOR
[2019-07-12 20:25] VITALS: BP 145/74
--- NOTE | 2019-07-12 23:38 | NUR ---
QUIET HOURS. PT LYING IN BED SUPINE HOB 15 DEGREES. EYES CLOSED RESTING QUIETLY. AT BEDSIDE SLEEP. NO SIGNS OF ACUTE DISTRESS NOTED.
--- NOTE | 2019-07-13 03:21 | NUR ---
PT LYING IN BED EYES CLOSED RESTING QUIETLY. ASLEEP IN CHAIR AT BEDSIDE.
--- NOTE | 2019-07-13 06:13 | NUR ---
PT LYING IN BED EYES CLOSED RESTING QUIETLY. ASLEEP AT BEDSIDE
[2019-07-13 06:21] LABS: BASOPHILS 0.3 % (0-2); EOSINOPHILS 3.6 % (0-7); HEMATOCRIT 29.3 % (42.0-54.0); HEMOGLOBIN 9.7 g/dL (13.5-17.5); IMMATURE GRANULOCYTES 5.9 % (0-5); LYMPHOCYTES 12.7 % (15-50); MCH 28.7 pg (26.0-34.0); MCHC 33.1 g/dL (31.0-37.0); MCV 86.7 fL (80.0-100.0); MEAN PLATELET VOLUME 9.8 fL (7.4-10.4); MONOCYTES 12.1 % (2-11); NEUTROPHILS 65.4 % (40-80); RBC 3.38 10x6/uL (4.20-6.10); RDW 13.9 % (11.5-14.5); WBC 12.9 10x3/uL (4.8-10.8)
[2019-07-13 06:34] LABS: CALC OSMOLALITY 282 mosm/kg (275-300); CALCIUM 8.4 mg/dL (8.5-10.1); CARBON DIOXIDE 28.5 mmol/L (21.0-32.0); CHLORIDE - SERUM 104 mmol/L (98-107); CREATININE - SERUM 0.9 mg/dL (0.6-1.3); GLUCOSE 102 mg/dL (74-106); POTASSIUM - SERUM 3.1 mmol/L (3.5-5.1); SODIUM 141 mmol/L (136-145); UREA NITROGEN 19 mg/dL (7-18); eGFR NON AFRICAN AMERICAN 86 mL/min (90-120)
[2019-07-13 06:43] LABS: PLATELET COUNT 237 10x3/uL (130-400)
--- NOTE | 2019-07-13 07:45 | NUR ---
PRN ZOFRAN GIVEN FOR NASUEA
[2019-07-13 08:00] VITALS: BP 144/68
--- NOTE | 2019-07-13 08:00 | NUR ---
PATIENT SITTING UP IN CHAIR THIS AM AT SINK WASHING FACE. IN ROOM WITH PATIENT. CALL LIGHT WITHIN REACH. VOICES NO NEEDS AT THIS TIME. WILL CONTINUE WITH PLAN OF CARE
--- NOTE | 2019-07-13 11:52 | NUR ---
PATIENT IN REHAB ROOM. WORKING WITH PHYSICAL THERAPIST. DENIES ANY NAUSEA OR PAIN/DISC AT THIS TIME.
--- NOTE | 2019-07-13 13:32 | NUR ---
PATIENT LYING ON SIDE AND RESTING IN BED AT THIS TIME. REFUSED CPM ON AT THIS TIME.
--- NOTE | 2019-07-13 13:48 | NUR ---
SPEECH THERAPIST IN ROOM. WORKING WITH PATIENT
--- NOTE | 2019-07-13 15:00 | NUR ---
CPM ON RIGHT KNEE. MOTION SET BY THERAPY
--- NOTE | 2019-07-13 15:55 | NUR ---
DR ESQUIVEL CALLED BY THIS NURSE. PATIENTS' STATED THAT PATIENT HAS AN APPT WITH DR ESQUIVEL ON . STATED THAT PATIENT HAS HAD PROSTATE PROBLES. DR ESQUIVEL STATED TO NOT REMOVE BELL CATH. TO KEEP BELL CATH IN UNTIL PATIEN IS DISCHARGED FROM REHAB AND SEES HIM ON
--- NOTE | 2019-07-13 19:29 | NUR ---
AWAKE AND ALERT. RESTING IN BED. RESPIRATIONS UNLABORED. SALINE LOCK INTACT TO LEFT UPPER ARM WITH NO SIGNS OF INFILTRATION. BELL PATENT DRAINING CLEAR YELLOW URINE. RIGHT TOTAL KNEE REPAIR DRESSING DRY AND INTACT. FAMILY AT BEDSIDE. CALL LIGHT IN REACH.
[2019-07-13 20:44] VITALS: BP 157/76
--- NOTE | 2019-07-14 01:09 | NUR ---
SLEEPING WITH RESPIRATIONS UNLABORED. SALINE LOCK INTACT. BELL PATENT. FAMILY AT BEDSIDE.
--- NOTE | 2019-07-14 02:52 | NUR ---
SLEEPING WITH RESPIRATIONS UNLABORED. NO DISTRESS NOTED. CALL LIGHT IN REACH. FAMILY AT BEDSIDE.
--- NOTE | 2019-07-14 05:08 | NUR ---
QUIET HOURS. NO ACUTE CHANGES IN CONDITION THIS SHIFT. DRESSING TO RIGHT KNEE DRY AND INTACT. BELL PATENT. SALINE LOCK INTACT TO LEFT UPPER ARM WITH NO SIGNS OF INFILTRATION. CALL LIGHT IN REACH. FAMILY AT BEDSIDE.
--- NOTE | 2019-07-14 07:22 | NUR ---
RESTING WO DISTRESS. RESP EVEN AND UNLABORED. CL IN REACH.
[2019-07-14 08:00] VITALS: BP 154/82
--- NOTE | 2019-07-14 09:08 | NUR ---
SHOWER TODAY DONE PER NURSING.
--- NOTE | 2019-07-14 13:31 | NUR ---
PARTICIPATED IN THERAPY. IN ROOM WITH AT AT THIS TIME. BED ALARM ON. CL IN REACH.
--- NOTE | 2019-07-14 14:03 | NUR ---
Nutrition Follow-up: Chart reviewed. Noted diarrhea improved. Diet: Regular PO intake: ~66% average x 8 meals, as recorded. Spoke with pt and pt's . Both report an "alright" appetite for pt. reports that pt is eating about half. Reports that they will order pt an Ensure if they feel that his PO intake is inadequate. Meds noted: IV rocephin. Labs reviewed. Noted "reddened area to buttocks" on nursing skin assessment. Last BM 07/13/19 x 2. Wt: 200# (07/11/19) Continue current nutrition regimen. Encouraged PO intake. Will offer oral nutrition supplements if PO intake <50% average. RD Following.
--- NOTE | 2019-07-14 15:51 | NUR ---
PATIENT ADMITTED TO REHAB FROM ACUTE FLOOR. DR. ALONZO SCHWARZ IS PATIENT PCP. DISCHARGE PLANS ARE FOR PATIENT TO RETURN HOME. PATIENT WAS ADMITTED TO ACUTE FLOOR FOR AN ELECTIVE TOTAL KNEE. WILL CONTINUE TO FOLLOW WITH PATIENT
--- NOTE | 2019-07-14 16:00 | NUR ---
NO CHANGE IN ASSESSMENT. RESP EVEN AND UNLABORED. NO C/O PAIN. CL IN REACH. CPM ON TO R LE.
--- NOTE | 2019-07-14 19:20 | NUR ---
BEDSIDE REPORT COMPLETE. PT SITTING UP IN BED WATCHING TV. DENIES ANY NEEDS OR PAIN. ALERT AND ORIENTED X4. AT BEDSIDE. VS STABLE. SHIFT ASSESSMENT COMPLETE. F/C PATENT AND FREE OF KINKS. CALL LIGHT AND WATER WITHIN REACH, FALL PRECAUTIONS IN PLACE. WILL CONTINUE TO MONITOR
[2019-07-14 19:30] VITALS: BP 146/75
--- NOTE | 2019-07-14 23:14 | NUR ---
QUIET HOURS. PT LYING IN BED EYES CLOSED RESTING QUIETLY. AT BEDSIDE ASLEEP. RR EVEN AND UNLABORED. WILL CONTINUE TO MONITOR
--- NOTE | 2019-07-15 05:00 | NUR ---
PT LYING IN BED EYES CLOSED RESTING QUIETLY. AT BEDSIDE ASLEEP. WILL CONTINUE TO MONITOR
--- NOTE | 2019-07-15 07:13 | NUR ---
RESTING WO DISTRESS. RESP EVEN AND UNLABORED. CL IN REACH.
[2019-07-15 07:32] LABS: BASOPHILS 0.4 % (0-2); EOSINOPHILS 2.4 % (0-7); HEMATOCRIT 31.9 % (42.0-54.0); HEMOGLOBIN 10.6 g/dL (13.5-17.5); IMMATURE GRANULOCYTES 5.6 % (0-5); LYMPHOCYTES 9.4 % (15-50); MCH 28.7 pg (26.0-34.0); MCHC 33.2 g/dL (31.0-37.0); MCV 86.4 fL (80.0-100.0); MEAN PLATELET VOLUME 10.5 fL (7.4-10.4); NEUTROPHILS 72.2 % (40-80); PLATELET COUNT 245 10x3/uL (130-400); RBC 3.69 10x6/uL (4.20-6.10); WBC 14.8 10x3/uL (4.8-10.8)
[2019-07-15 07:55] LABS: CALC OSMOLALITY 278 mosm/kg (275-300); CALCIUM 8.5 mg/dL (8.5-10.1); CARBON DIOXIDE 28.4 mmol/L (21.0-32.0); CHLORIDE - SERUM 103 mmol/L (98-107); CREATININE - SERUM 0.8 mg/dL (0.6-1.3); GLUCOSE 107 mg/dL (74-106); POTASSIUM - SERUM 3.6 mmol/L (3.5-5.1); SODIUM 139 mmol/L (136-145); UREA NITROGEN 15 mg/dL (7-18); eGFR NON AFRICAN AMERICAN > 90 mL/min (90-120)
[2019-07-15 08:04] VITALS: BP 127/49
--- NOTE | 2019-07-15 18:28 | NUR ---
NO CHANGE IN ASSESSMENT. RESP EVEN AND UNLABORED. FAMILY AT BS. CL IN REACH.
--- NOTE | 2019-07-15 20:03 | NUR ---
AWAKE AND ALERT RESTING IN BED. RESPIRATIONS UNLABORED. MIDLINE INTACT TO LEFT UPPER ARM. BELL PATENT. FAMILY AT BEDSIDE. NO ACUTE DISTRESS NOTED. CALL LIGHT IN REACH.
[2019-07-15 22:00] VITALS: BP 151/76
--- NOTE | 2019-07-16 00:09 | NUR ---
RESTING IN BED WITH NO DISTRESS NOTED. BELL PATENT. AT BEDSIDE.
--- NOTE | 2019-07-16 03:04 | NUR ---
RESTING IN BED WITH RESPRIATIONS UNLABORED. NO DISTRESS NOTED. FAMILY AT BEDSIDE.
--- NOTE | 2019-07-16 05:26 | NUR ---
QUIET HOURS. NO ACUTE CHANGES IN CONDITION THIS SHIFT. RESTING QUIETLY. BELL PATENT. LEFT UPPER ARM SALINE LOCK INTACT. NO DISTRESS NOTED.
[2019-07-16 08:00] VITALS: BP 129/67
--- NOTE | 2019-07-16 08:21 | NUR ---
PATIENT IS ALERT/SOME FORGETFULLNESS. IN ROOM WITH PATIENT. CALL LIGHT WITHIN REACH. VOICES NO NEEDS AT THIS TIME. WILL CONTINUE WITH PLAN OF CARE
--- NOTE | 2019-07-16 10:11 | NUR ---
PATIENT HELPED WITH SHOWER FROM PLANNER SCHEDULER
--- NOTE | 2019-07-16 11:00 | NUR ---
I have reviewed this patient and I concur with the Shift Assessment completed by the Licensed Practical Nurse today this shift.
--- NOTE | 2019-07-16 13:43 | RHP ---
PATIENT: Ismhael QUINONEZ MEDICAL RECORD: [id number] ACCOUNT: [id number] LOCATION:[facility]1110 : 38 ADMISSION DATE: 07/10/19 REHABILITATION HISTORY AND PHYSICAL EXAMINATION POST ADMISSION PHYSICIAN EXAMINATION ADMITTING DIAGNOSIS: Status post left total knee replacement, debility. HISTORY OF PRESENT ILLNESS: The patient is an 78-year-old gentleman with past medical history of acute blood loss anemia, end-stage osteoarthritis, chronic dysphagia, hypertension, hyperlipidemia, and chronic back pain. The patient apparently had been admitted to medical floor for evaluation and monitoring treatment. Prior to this admission, the patient was living alone with his and house with multiple steps. He was independent with ADLs. He is currently max assist with ambulation and ADLs. He is going to require inpatient therapy to get back to his prior level of functioning, after having a lower extremity total knee replacement. COMORBIDITIES: In this patient include right total knee arthroplasty, acute blood loss anemia, end-stage osteoarthritis, chronic dysphagia, hypertension, hyperlipidemia, irregular heartbeat, arthritis, chronic back pain, gastroesophageal reflux disease, and history of Chadbourn spotted fever. PAST MEDICAL HISTORY: Significant for allergies, got a history of hyperlipidemia, hypertension, chronic cough, Chadbourn spotted fever, acid reflux, arthritis, chronic back pain. PAST SURGICAL HISTORY: Includes cataract surgery. He has had a right hernia repair. He has had a hematoma that thought debrided in the past. He had knee surgery. ALLERGIES: PREVACID. CURRENT MEDICATIONS: Include Floranex 460 mg daily, Proscar 5 mg daily, potassium 20 mEq daily, multivitamin 1 tab daily, Ziac 10/6.25 one tab daily, Pepcid 40 mg b.i.d., Pravachol 40 mg at bedtime, Cozaar 100 mg at bedtime, Mucinex 1200 mg b.i.d., Sowmya 60 mg b.i.d., Eliquis 2.5 mg b.i.d., Amitiza 24 mcg b.i.d. with meals, [place]field 10/325 one tab q.4 hours p.r.n., and Rocephin 1 gram q.24 hours for a total of 6 doses. HABITS: No alcohol or tobacco use. FAMILY HISTORY: Noncontributory. SOCIAL HISTORY: The patient hopes to return back home and get back to his prior level of functioning. REVIEW OF SYSTEMS: GENERAL: Denies weakness or fatigue. HEENT: Denies cold, cough, or congestion. CARDIOVASCULAR: He denies chest pain. PHYSICAL EXAMINATION: VITAL SIGNS: Stable, afebrile. GENERAL: A somewhat obese gentleman in no acute distress, alert upon exam. HISTORY AND PHYSICAL [id number] Ishmael QUINONEZ HEENT: Normocephalic and atraumatic. Mucosa moist. NECK: Supple. No lymphadenopathy. LUNGS: Clear at this time with no wheeze, rhonchi, or rales. HEART: Regular rhythm. He does have some frequent PVCs. ABDOMEN: Soft and nondistended. Positive bowel sounds times 4. EXTREMITIES: No clubbing, cyanosis, or edema. Postop swelling appears normal. NEUROLOGIC: He is mainly normal. LABORATORY DATA: White count is 14.9, H and H of 11 and 33 and platelet count was noted to be 183. His sodium is 140, potassium 4.0, BUN and creatinine of 22 and 1.1 and blood sugar is note to be 110. UA did show 2+ blood, trace leukocyte esterase. ASSESSMENT: This is an 78-year-old gentleman admitted to the rehab with a working diagnosis of total knee replacement, debility, associated with it. The patient has potential to make improvement. We instituted the following multidisciplinary therapies include, but not limited to physical, occupational, respiratory, speech, nutritional services, prosthetics and orthotics. Given her complex medical condition and risks for more complications, rehabilitation services cannot be provided at a low level of care such as skilled nurse facility. PLAN: 1. Admit to [facility] for intensive inpatient therapy to include the following disciplines: A. Physical therapy to improve gait, all transfer skills and bed mobility to a modified independent level. B. Occupational therapy to a modified independent level. C. Case management to assist with discharge planning and placement options. D. Nutrition to assist with nutritional needs. E. Rehabilitation nursing to assist in monitoring the patient's underlying medical conditions and to assist with any type of bowel or bladder management. 2. The patient's current medication and medical care will be continued. 3. Placed on standard fall precautions. 4. The patient's estimated length of stay is approximately 7-10 days. 5. We will discuss this patient during care team staff meeting this week. We will see again in the a.m. on Saturday. TRANSINT:[id number] Voice Confirmation ID: [id number] DOCUMENT ID: [id number] MONROE notes whether there has been none or any medical/functional change since admission: - No change since preadmission screen. MONROE attests patient continues to be appropriate for IRF: - Continues to be appropriate. HISTORY AND PHYSICAL [id number] Ishmael QUINONEZ,ASHOK ZHU MD at 1343 CC: [id number] DICTATION DATE: 07/10/191940 SOCIAL MEDIA DESIGNER: 07/10/193 ADM IN [facility] [address] [id number]
--- NOTE | 2019-07-16 13:44 | NUR ---
PATIENT IN REHAB ROOM. WORKING WITH OCCUPATIONAL THERAPIST
--- NOTE | 2019-07-16 19:46 | NUR ---
AWAKE AND ALERT. SOME MILD CONFUSION AT TIMES. RESPIRATIONS UNLABORED. RIGHT KNEE MILDLY SWOLLEN WITH SURICAL CLIPS IN PLACE. PLACED ON CPM AT THIS TIME. BELL PATENT. AT BEDSIDE.
[2019-07-16 21:16] VITALS: BP 147/77
--- NOTE | 2019-07-17 00:21 | NUR ---
RESTING IN BED WITH RESPIRATIONS UNLABORED. EYES CLOSED. BELL PATENT. AT BEDSIDE.
--- NOTE | 2019-07-17 05:29 | NUR ---
QUIET HOURS. JUST ASSISTED TO BATHROOM AND BACK TO BED. NO CURRENT C/O PAIN. URINE IN BELL SLIGHTLY RED. MESSAGE LEFT FOR DR LOVE ON ROUNDING SHEET. BRI INTACT TO RIGHT KNEE. AT BEDISIDE.
[2019-07-17 06:04] LABS: BASOPHILS 0.2 % (0-2); EOSINOPHILS 3.4 % (0-7); HEMATOCRIT 33.5 % (42.0-54.0); IMMATURE GRANULOCYTES 5.2 % (0-5); MCH 28.9 pg (26.0-34.0); MCHC 32.8 g/dL (31.0-37.0); MCV 88.2 fL (80.0-100.0); MEAN PLATELET VOLUME 10.8 fL (7.4-10.4); NEUTROPHILS 63.2 % (40-80); PLATELET COUNT 220 10x3/uL (130-400); RDW 14.4 % (11.5-14.5); WBC 14.3 10x3/uL (4.8-10.8)
[2019-07-17 06:35] LABS: CALC OSMOLALITY 289 mosm/kg (275-300); CALCIUM 8.2 mg/dL (8.5-10.1); CARBON DIOXIDE 29.4 mmol/L (21.0-32.0); CHLORIDE - SERUM 104 mmol/L (98-107); CREATININE - SERUM 0.8 mg/dL (0.6-1.3); GLUCOSE 80 mg/dL (74-106); POTASSIUM - SERUM 4.4 mmol/L (3.5-5.1); SODIUM 144 mmol/L (136-145); UREA NITROGEN 24 mg/dL (7-18); eGFR NON AFRICAN AMERICAN > 90 mL/min (90-120)
[2019-07-17 08:00] VITALS: BP 135/72
--- NOTE | 2019-07-17 08:12 | NUR ---
PT SITTING UP IN BED EATING BREAKFAST, DENIES NEEDS. WCTM.
--- NOTE | 2019-07-17 17:28 | NUR ---
NEW STAT LOCK PLACED D/T PREV ONE TWISTING AND COMING OFF. UA COLLECTED. PT EATIG DINNER, DENIES NEEDS. WCTM.
[2019-07-17 18:11] LABS: APPEARANCE CLEAR (CLEAR); BILIRUBIN NEGATIVE (NEGATIVE); COLOR YELLOW (YELLOW); GLUCOSE NEGATIVE (NEGATIVE); KETONE NEGATIVE (NEGATIVE); NITRITE NEGATIVE (NEGATIVE); PROTEIN NEGATIVE (NEGATIVE); UROBILINOGEN NORMAL (NORMAL)
[2019-07-17 18:13] LABS: BACTERIA FEW /hpf (NEGATIVE); RED CELLS - URINE 0-5 /hpf (0-5); WHITE CELLS - URINE RARE /hpf (NEGATIVE)
--- NOTE | 2019-07-17 19:05 | NUR ---
BEDSIDE REPORT COMPLETE. INTRODUCED SELF TO PT AND PT FAMILY, UPDATED INFO BOARD. PT SITTING UP IN BED WATCHING TV. DENIES ANY NEEDS OR PAIN. PLACED CPM RIGHT KNEE. VS STABLE. SHIFT ASSESSMENT COMPLETE. BELL PATENT AND FREE FROM KINKS. CALL LIGHT AND WATER WITHIN REACH, FALL PRECAUTIONS IN PLACE. WILL CONTINUE TO MONITOR
[2019-07-17 19:48] VITALS: BP 138/72
--- NOTE | 2019-07-17 23:51 | NUR ---
QUIET HOURS. PT LYING IN BED EYES CLOSED RESTING QUIETLY. RR EVEN AND UNLABORED. WILL CONTINUE TO MONITOR
--- NOTE | 2019-07-18 03:27 | NUR ---
PT LYING IN BED SUPINE EYES CLOSED RESTING QUIETLY. AT BEDSIDE. CL IN REACH. NO SIGNS OF DISTRESS NOTED. WILL CONTINUE TO MONITOR
[2019-07-18 08:18] VITALS: BP 141/72
--- NOTE | 2019-07-18 08:47 | NUR ---
PT AM MEDS ADMINISTERED. PT DENIES NEEDS. WCTM.
--- NOTE | 2019-07-18 17:44 | NUR ---
PT EATING DINNER, DENIES NEEDS. WCTM.
--- NOTE | 2019-07-18 19:00 | NUR ---
BEDSIDE REPORT COMPLETE. PT LYING IN BED WATCHING FOOTBALL WITH FAMILY. DENIES ANY NEEDS OR PAIN. ALERT AND ORIENTED X4. NO SIGNS OF DISTRESS NOTED. VS STABLE. SHIFT ASSESSMENT COMPLETE. CL IN REACH. FALL PRECAUTIONS IN PLACE. WILL CONTINUE TO MONITOR
[2019-07-18 19:10] VITALS: BP 128/64
--- NOTE | 2019-07-18 22:14 | NUR ---
CPM ON RIGHT LEG
--- NOTE | 2019-07-18 23:43 | NUR ---
QUIET HOURS. PT LYING SUPINE IN BED EYES CLOSED RESTING. REMOVED CPM.
--- NOTE | 2019-07-19 03:20 | NUR ---
PT LYING IN BED EYES CLOSED RESTING QUIETLY. ASLEEP AT BEDSIDE.
--- NOTE | 2019-07-19 05:50 | NUR ---
PLACED PT ON CPM
--- NOTE | 2019-07-19 06:33 | NUR ---
LYING IN BED SUPINE EYES CLOSED RESTING. 45 MIN REMAINING LEFT ON CPM. AT BEDSIDE READING PAPER.
--- NOTE | 2019-07-19 08:57 | NUR ---
PT AM MEDS ADMINSITERED. PT ASSISTED BACK INTO BED AND CPM PLACED ON RLE. PT DENIES NEEDS. WCTM.
--- NOTE | 2019-07-19 11:03 | NUR ---
CPM REMOVED FROM PT RLE. PT RESTING IN BED, DENIES NEEDS. WCTM.
[2019-07-19 19:05] VITALS: BP 108/63
--- NOTE | 2019-07-19 19:05 | NUR ---
BEDSIDE REPORT COMPLETE. PT SITTING UP ON SIDE OF BED VISITING WITH FAMILY. DENIES ANY NEEDS OR PAIN. NO SIGNS OF ACUTE DISTRESS NOTED. RIGHT KNEE INCISION WELL APPROXIMATED, SUTURES C/D/I OPEN TO AIR. BELL PATENT AND FREE OF KINKS. EMPTIED 900ML DONALD URINE. VS STABLE. SHIFT ASSESSMENT COMPLETE. CL IN REACH, FAMILY AT BEDSIDE. WILL CONTINUE TO MONITOR
--- NOTE | 2019-07-19 23:43 | NUR ---
QUIET HOURS. PT LYING IN BED EYES CLOSED RESTING QUIETLY. ASLEEP AT BEDSIDE. NO SIGNS OF DISTRESS NOTED. CL IN REACH
--- NOTE | 2019-07-20 03:44 | NUR ---
PT LYING IN BED SUPINE EYES CLOSED RESTING. ASLEEP AT BEDSIDE
--- NOTE | 2019-07-20 05:53 | NUR ---
PT LYING IN BED WATCHING MORNING NEWS WITH . CPM PLACED RIGHT KNEE FOR THE NEXT 1.5 HOURS. CL IN REACH
[2019-07-20 06:15] LABS: BASOPHILS 0.4 % (0-2); EOSINOPHILS 3.8 % (0-7); HEMATOCRIT 34.1 % (42.0-54.0); HEMOGLOBIN 10.9 g/dL (13.5-17.5); IMMATURE GRANULOCYTES 2.1 % (0-5); MCH 28.3 pg (26.0-34.0); MCV 88.6 fL (80.0-100.0); MEAN PLATELET VOLUME 10.5 fL (7.4-10.4); MONOCYTES 8.1 % (2-11); NEUTROPHILS 67.6 % (40-80); PLATELET COUNT 258 10x3/uL (130-400); RBC 3.85 10x6/uL (4.20-6.10); RDW 14.2 % (11.5-14.5); WBC 12.1 10x3/uL (4.8-10.8)
[2019-07-20 06:41] LABS: CALC OSMOLALITY 285 mosm/kg (275-300); CARBON DIOXIDE 26.2 mmol/L (21.0-32.0); CHLORIDE - SERUM 106 mmol/L (98-107); CREATININE - SERUM 0.8 mg/dL (0.6-1.3); GLUCOSE 90 mg/dL (74-106); POTASSIUM - SERUM 4.5 mmol/L (3.5-5.1); SODIUM 142 mmol/L (136-145); UREA NITROGEN 20 mg/dL (7-18); eGFR NON AFRICAN AMERICAN > 90 mL/min (90-120)
[2019-07-20 07:47] VITALS: BP 156/73
--- NOTE | 2019-07-20 07:56 | NUR ---
PATIENT SITTING UP IN WHEELCHAIR FOR BREAKFAST. AT BEDSIDE. CALL LIGHT WITHIN REACH. PATIENT IS ALERT WITH FORGETFULLNESS. CHAIR ALARM ON. WILL CONTINUE WITH PLAN OF CARE
--- NOTE | 2019-07-20 10:52 | NUR ---
PATIENT IN REHAB ROOM. WORKING WITH PHYSICAL THERAPIST
--- NOTE | 2019-07-20 13:15 | NUR ---
DR SHEA NURSECHRISTIE CALLED ET STATED TO REMOVE THE REST OF SURGICAL BRI FROM RIGHT KNEE INCISION.
--- NOTE | 2019-07-20 13:50 | NUR ---
Nutrition Follow-up: Diet: Regular PO intake: ~70% average x 9 meals; reports good appetite. Labs, meds, and skin assessment reviewed. Last wt: 200 (07/11/19), no new. +BM Continue current nutrition regimen. RD Following.
--- NOTE | 2019-07-20 15:26 | NUR ---
NURSE ASST ASST WITH PATIENTS SHOWER
--- NOTE | 2019-07-20 15:45 | NUR ---
REMAINING SURGICAL CLIPS REMOVED FROM RIGHT KNEE. STERI STRIPES APPLIED
--- NOTE | 2019-07-20 19:00 | NUR ---
BEDSIDE REPORT COMPLETE. PT SITTING UP IN W/C VISITING WITH . ALERT AND ORIENTED X4. DENIES ANY PAIN OR NEEDS. NO SIGNS OF ACUTE DISTRESS NOTED. BELL PATENT AND FREE FROM KINKS. CL IN REACH, FALL PRECAUTIONS IN PLACE. WILL CONTINUE TO MONITOR
[2019-07-20 20:47] VITALS: BP 123/64
--- NOTE | 2019-07-21 01:50 | NUR ---
QUIET HOURS. PT LYING IN BED ON RIGHT SIDE EYES CLOSED RESTING QUIETLY. ASLEEP AT BEDSIDE. CL IN REACH
--- NOTE | 2019-07-21 05:32 | NUR ---
PT LYING IN BED ON LEFT SIDE EYES CLOSED RESTING. NO SIGNS OF DISTRESS NOTED. CL IN REACH. ASLEEP AT BEDSIDE
--- NOTE | 2019-07-21 08:15 | NUR ---
PT RESTING IN BED WITH EYES OPEN CALL LIGHT IN REACH NO PROBLEMS
[2019-07-21 08:22] VITALS: BP 130/72
--- NOTE | 2019-07-21 14:35 | NUR ---
I have reviewed this patient and I concur with the Shift Assessment completed by the Licensed Practical Nurse today this shift.
--- NOTE | 2019-07-21 18:27 | NUR ---
PT RESTING IN BED WITH EYES OPEN CALL LIGHT IN REACH WILL MONITER
--- NOTE | 2019-07-21 19:56 | NUR ---
AWAKE AND ALERT. RESTING IN BED. RESPIRATIONS UNLABORED. RIGHT KNEE INCISION NOTED WITH STERI-STRIPS IN PLACE AND NO DRAINING WITH EDGES APPROXIMATED. MILD REDNESSESS AND MINIMAL SWELLING. BELL PATENT. AT BEDSIDE AND ATTENTIVE TO NEEDS.
[2019-07-21 20:37] VITALS: BP 117/65
--- NOTE | 2019-07-22 02:11 | NUR ---
SLEEPING WITH NO DISTRESS NOTED. RESPIRATIONS UNLABORED. AT BEDSIDE.
[2019-07-22 07:49] VITALS: BP 132/66
--- NOTE | 2019-07-22 09:43 | NUR ---
PATIENT IS ALERT WITH FORGETFULLNESS. REMAINS AT BEDSIDE. CALL LIGHT WITHIN REACH. VOICES NO NEEDS. WILL CONTINUE WITH PLAN OF CARE
--- NOTE | 2019-07-22 13:50 | NUR ---
TELEMETRY IN PLACE. RUNNING 66 SR
--- NOTE | 2019-07-22 13:52 | NUR ---
PATIENT IN REHAB ROOM. WORKING WITH PHYSICAL THERAPIST
--- NOTE | 2019-07-22 16:24 | NUR ---
CARE TEAM MEETING: PATIENTS SPOUSE ATTENDED MEETING. HER QUESTIONS AND CONCERNS WERE ADDRESSED. PATIENT WILL DISCHARGE HOME IN AM. WILL CONTINUE TO FOLLOW WITH PATIENT.
--- NOTE | 2019-07-22 18:55 | NUR ---
BEDSIDE REPORT COMPLETE. PT SITTING UP IN W/C VISITING WITH FAMILY. DENIES ANY NEEDS OR PAIN. F/C PATENT AND FREE FROM KINKS. VS STABLE. SHIFT ASSESSMENT COMPLETE. INFO BOARD UPDATED. CL IN REACH. FALL PRECAUTIONS IN PLACE. WILL CONTINUE TO MONITOR
[2019-07-22 21:13] VITALS: BP 102/56
--- NOTE | 2019-07-23 00:07 | NUR ---
QUIET HOURS. PT LYING IN BED SUPINE EYES CLOSED RESTING QUIETLY. ASLEEP AT BEDSIDE. CL IN REACH. WILL CONTINUE TO MONITOR
--- NOTE | 2019-07-23 04:00 | NUR ---
PT LYING IN BED ON LEFT SIDE EYES CLOSED RESTING QUIETLY. RR EVEN AND UNLABORED. ASLEEP AT BEDSIDE. CL IN REACH.
--- NOTE | 2019-07-23 06:28 | NUR ---
PT SITTING UP ON SIDE OF BED DRINKING COFFEE. AT BEDSIDE. DENIES ANY NEEDS OR PAIN. EMPTIED BELL 900ML. CL IN REACH
--- NOTE | 2019-07-23 07:48 | NUR ---
PT SITTING UP ON SIDE OF BED EATING BREAKFAST, DENIES NEEDS. WCTM.
[2019-07-23 08:00] VITALS: BP 132/76
[2019-07-23] MEDS ORDERED: HYDROCODON-ACE1 EA10 PO (08:21)
--- NOTE | 2019-07-23 09:22 | NUR ---
PATIENT DISCHARGING HOME TODAY WITH FAMILY. [facility] WILL PROVIDE THERAPY AT HOME. NO NEW DME NEEDED AT THIS TIME. DR. SCHWARZ 07/24/19 @ 8:00, DR. LAZARO 08/10/19 @ 9:00, DR. BURGESS 07/23/19 @ 2:15. PATIENT CHOICE FORM AND IMFM FORMS SIGNED, COPY GIEN TO PATIENT AND FILED IN CHART. DISCHARGE INSTRUCTIONS, REVIEWED WITH PATIENT AND SPOUSE AND FAXED TO PCP AND TO HOME HEALTH.
--- NOTE | 2019-07-23 12:38 | NUR ---
PT EATING LUNCH, DENIES NEEDS. WCTM.
--- NOTE | 2019-07-23 12:46 | NUR ---
PT DISCHARGE INSTRUCTINOS REVIEWED. PT AND SPOUSE STATE UNDERSTANDING. MEDICATIONS CALLED IN TO [facility] ([facility]). HARD SCRIPT FOR PAIN MEDICATION GIVEN TO PT.
--- NOTE | 2019-07-23 13:52 | NUR ---
PT ESCORTED OFF BY HOSPITAL VOLUNTEER. PT DISCHARGING HOME WITH SPOUSE AT THIS TIME.
== END 2019-07-23 13:53 | disposition home health service (06) | DRG 948 ==
LOC: D.REHAB 15:37
PROVIDERS: ADMIT Emergency Medicine; ATTEND Emergency Medicine
DX: R53.81 Other malaise (principal); D62 Acute posthemorrhagic anemia; Z96.652 Presence of left artificial knee joint; I10 Essential (primary) hypertension; R13.10 Dysphagia, unspecified; E78.5 Hyperlipidemia, unspecified; M54.5 Low back pain; K21.9 Gastro-esophageal reflux disease without esophagitis; M19.90 Unspecified osteoarthritis, unspecified site; R05 Cough; G89.29 Other chronic pain; Z47.1 Aftercare following joint replacement surgery

== ENCOUNTER → 2019-08-04 08:29 | Outpatient (CLI) | payer MEDICARE, BC ==
[2019-07-11 10:30] VITALS: BMI 29.5
[2019-08-04 08:47] LABS: APPEARANCE CLEAR (CLEAR); BILIRUBIN NEGATIVE (NEGATIVE); COLOR YELLOW (YELLOW); GLUCOSE NEGATIVE (NEGATIVE); KETONE NEGATIVE (NEGATIVE); NITRITE NEGATIVE (NEGATIVE); PROTEIN TRACE mg/dL (NEGATIVE); SPECIFIC GRAVITY 1.015 (1.005-1.020); UROBILINOGEN NORMAL (NORMAL)
[2019-08-04 08:50] LABS: WHITE CELLS - URINE 25-50 /hpf (NEGATIVE)
[2019-08-04 08:51] LABS: BACTERIA FEW /hpf (NEGATIVE); EPITHELIAL CELLS NSEEN /hpf (0-5); RED CELLS - URINE 0-5 /hpf (0-5); YEAST >1+ WITH HYPHAE /hpf (NONE SEEN)
== END | disposition home or self-care (01) ==
LOC: D.LABREF 08:29
PROVIDERS: ATTEND Urology
DX: N40.1 Benign prostatic hyperplasia with lower urinary tract symptoms (principal); R33.8 Other retention of urine

== ENCOUNTER → 2019-08-19 11:42 | Outpatient (CLI) | payer MEDICARE, BC ==
[2019-07-11 10:30] VITALS: BMI 29.5
[2019-08-19 14:54] LABS: APPEARANCE CLEAR (CLEAR); BILIRUBIN NEGATIVE (NEGATIVE); COLOR DK YELLOW (YELLOW); GLUCOSE NEGATIVE (NEGATIVE); KETONE NEGATIVE (NEGATIVE); NITRITE NEGATIVE (NEGATIVE); PROTEIN NEGATIVE (NEGATIVE); SPECIFIC GRAVITY 1.025 (1.005-1.020); UROBILINOGEN NORMAL (NORMAL)
== END | disposition home or self-care (01) ==
LOC: D.LABREF 11:42
PROVIDERS: ATTEND Urology
DX: Z43.5 Encounter for attention to cystostomy (principal); E78.5 Hyperlipidemia, unspecified

== ENCOUNTER 2019-09-24 06:49 | Day surgery (SDC) | payer MEDICARE, BC ==
[~2019-09-24] VITALS: Ht 175.3 cm; Wt 94.3 kg
[2019-09-24 07:34] LABS: BASOPHILS 0.3 % (0-2); EOSINOPHILS 3.7 % (0-7); HEMATOCRIT 40.4 % (42.0-54.0); HEMOGLOBIN 13.1 g/dL (13.5-17.5); IMMATURE GRANULOCYTES 0.3 % (0-5); LYMPHOCYTES 25.9 % (15-50); MCH 28.4 pg (26.0-34.0); MCHC 32.4 g/dL (31.0-37.0); MCV 87.6 fL (80.0-100.0); MEAN PLATELET VOLUME 10.7 fL (7.4-10.4); MONOCYTES 13.9 % (2-11); NEUTROPHILS 55.9 % (40-80); RBC 4.61 10x6/uL (4.20-6.10); RDW 14.7 % (11.5-14.5); WBC 6.2 10x3/uL (4.8-10.8)
[2019-09-24 07:35] LABS: CALC OSMOLALITY 283 mosm/kg (275-300); CARBON DIOXIDE 30.3 mmol/L (21.0-32.0); CHLORIDE - SERUM 106 mmol/L (98-107); GLUCOSE 99 mg/dL (74-106); SODIUM 141 mmol/L (136-145); UREA NITROGEN 20 mg/dL (7-18); eGFR NON AFRICAN AMERICAN 76 mL/min (90-120)
[2019-09-24] MEDS ORDERED: PEPCID40 MG PO (07:38)
[2019-09-24] MEDS ORDERED: PROSCAR5 MG PO (07:39)
[2019-09-24 07:45] LABS: PLATELET COUNT 178 10x3/uL (130-400)
[2019-09-24 07:55] VITALS: BP 171/70; Ht 175.3 cm; Wt 94.3 kg
--- NOTE | 2019-09-24 14:17 | NUR ---
1004-REC'D FROM RR.AWAKE AND ALERT,REPORTS PAIN TO PENAL AREA 8/10,URINAL BETWEEN LEGS DUE TO PT FEELING URGE TO URINATE AND UNABLE TO AT THIS TIME. VSS. 02 2L/NC.REVIEWED DISCHARGE CRITERIA. ICE WATER AT BEDSIDE. FAMILY AT BEDSIDE AND CL IN EASY REACH.
--- NOTE | 2019-09-24 15:14 | NUR ---
1404-REC'D FROM RR. DROWSY,EASILY AROUSED WITH VERBAL STIMULI. VSS. 02 2L/NC.RESP EVEN NON LABORED, NO DISTRESS. ABD SOFT NON DISTENDED. AND DAUGHTER AT BEDSIDE,CL IN EASY REACH.ICE WATER AT BEDSIDE.REVIEWED DISCHARGE CRITERIA.VERBALIZED UNDERSTANDING.
--- NOTE | 2019-09-24 15:17 | NUR ---
1500-FULL LIQUID TRAY TO TOOM.VSS. 02 1L/NC. RESP EVEN NON LABORED, NO DISTRESS. UNABLE TO URINATE AT THIS TIME. REPORTS HE FEELS LIKE HE NEEDS TO. ATTEMPTED TO BY URINAL. CL IN EASY REACH. AT BEDSIDE.
--- NOTE | 2019-09-24 15:30 | OP ---
PATIENT NAME: Ishmael QUINONEZ MEDICAL RECORD: [id number] :38 LOCATION:[facility] ADMISSION DATE: SURGEON: MOR LAZARO MD DATE OF OPERATION: 09/24/2019 SURGEON: Mor Lazaro MD ANESTHESIA: TIVA by Mor Martins MD DIAGNOSES: Obstructive benign prostatic hyperplasia with a history of urinary retention. IPSS equals 13, quality of life score is 5. PROCEDURE: UroLift times 4. FINDINGS: Obstructive bladder neck, trabeculated bladder with single ureteral orifices. No bladder tumors were seen. The lateral lobes of the prostate are not obstructive. BLOOD LOSS: None. CLINICAL HISTORY: This is an 78-year-old male, who went into urinary retention after right knee arthroscopy. He failed the trial of tamsulosin and finasteride. He was finally able to void after 2 months of finasteride treatment. He wants to have the UroLift procedure done. HE IS ALLERGIC TO PREVACID AND PROPOFOL. He was given Levaquin 500 mg IV educational administration teacher to the OR. DESCRIPTION OF PROCEDURE: The patient was given IV sedation. He was then placed into lithotomy position and prepped and draped. 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 I dilated the urethral meatus to 24-Nepali with male sounds. The UroLift scope could then be introduced. Findings are as outlined above. We placed all 4 units at a distance of 1.5 cm distal to the bladder neck. One unit on each side was placed at the mid urethral level. One unit on each side was placed at the anterolateral sulcus. At the end of the procedure, this box configuration of units had opened up the bladder neck widely. The bladder was left partly full, so that we could have a voiding trial. I will see the patient in followup in about 1 months' time. TRANSINT:[id number] Voice Confirmation ID: [id number] DOCUMENT ID: [id number] MOR LAZARO MD at 1530 CC: [id number] DICTATION DATE: 09/24/19 1240 CLOUD CONSULTANT: 09/24/19 1517 REG [facility] [address] [place] [address]
--- NOTE | 2019-09-24 17:04 | NUR ---
1600-PT UNABLE TO URINATE. PER BLADDER SCAN HAS 487ML OF URINE. DR LAZARO IN SURGERY UNABLE TO REACH FOR FURTHER ORDERS. VSS.
--- NOTE | 2019-09-24 17:06 | NUR ---
1615-NEW V.O BY TO INSERT BELL,DISCHARGE HOME AND SCHEDULE FOLLOW UP FOR SATURDAY TO GET BELL REMOVED.
--- NOTE | 2019-09-24 17:07 | NUR ---
3425-EXPLAINED NEW ORDER TO PT AND SPOUSE. USING STERILE TECHNIQUE INSTERTED 16FR BELL CATHER,INFLATED BALLOON WITH 10CCNS.APPROXIMATELY 700CC URINE RETURN BY GRAVITY INTO FOLLEY BAG.PT REPORTS IMMEDIATE RELIEF. VSS. TEACHING WITH SPOUSE ON IMPORTANCE TO KEEP BELOW BLADDER AND NOT KINKED, ALSO SHOWED HOW TO EMPTY URINE. VERBALIZED UNDERSTANDING.
--- NOTE | 2019-09-24 17:12 | NUR ---
8205-DISCHARGE CRITERIA MET. REMOVED IV FROM LEFT HAND WITH CATH INTACT, DIPOSED INTO SHARPS.COVERED SITE WITH GUAZE,SECURED WITH MEDIPORE TAPE. ASSISTED WITH DRESSING PT.
--- NOTE | 2019-09-24 17:13 | NUR ---
4976-REVIEWED DISCHARGE POST OPERATIVE INSTRUCTIONS AND TO CALL DR LAZARO'S OFFICE TOMORROW AT [phone] TO SHEDULE APPOINTMENT ON SATURDAY FOR BELL REMOVAL AT THE [facility] OFFICE. VERBALIZED UNDERSTNADING. ESCORTED OUT VIA W/C BY STAFF. AWAITING TO DRIVE HOME. DISCHARGE PAPERWORK IN HAND.
--- NOTE | 2019-09-24 17:18 | NUR ---
1703-PT ESCORTED OUT VIA W/C WITH SPOUSE AWAITING TO DRIVE HOME
== END 2019-09-24 17:03 | disposition home or self-care (01) ==
LOC: D.OPS 06:49 → D.PAN 08:15 → D.OPS 08:50 → D.PAN 09:45 → D.OPS 17:03
PROVIDERS: Anesthesiology; ATTEND Urology
DX: N40.1 Benign prostatic hyperplasia with lower urinary tract symptoms (principal); R33.8 Other retention of urine; N30.00 Acute cystitis without hematuria